=== PATIENT | female | born 1980 | race Caucasian/White ===

== ENCOUNTER 2016-10-16 19:55 | Emergency (ER) | payer OTHER ==
[~2016-10-16] VITALS: Wt 74.0 kg
[2016-10-16] MEDS ORDERED: ACETAMINOPHEN 500 MG TAB PO STA (20:49)
[2016-10-16] MEDS ORDERED: KETOROLAC 60 MG INJ IM STA (20:49)
[2016-10-16 21:22] LABS: URINE BLOOD (Dip) POC 2+ (NEGATIVE)
[2016-10-16] MEDS ORDERED: ACET325T33 PO (21:36)
[2016-10-16] MEDS ORDERED: IBUP800T25 PO (21:36)
--- NOTE | 2016-10-16 21:56 | ERD ---
ER Documentation Chief Complaint Date/Time DATE: 10/16/16 TIME: 21:53 Chief Complaint Colds , cough and fever with ST, Right ear ache and body malaise HPI 36-year-old female coming in complaining of sore throat, ear pain, dry cough, fevers body aches, runny nose. Patient states that she has had the symptoms for the last 4 hours. She has not taken medications for her symptoms. She denies sick contacts. Denies recent travel. Denies headache. Denies neck pain. Denies vomiting. Denies change in urination or bowel movement. ROS All systems reviewed and are negative except as per history of present illness. Medications Home Meds Active Scripts Acetaminophen* (Tylenol*) 325 Mg Tablet, 2 TAB PO Q8 Y for PAIN AND OR ELEVATED TEMP, #20 TAB Prov:MARIA M ORTIZ PA-C 10/16/16 Ibuprofen* (Motrin*) 800 Mg Tab, 800 MG PO Q6, #30 TAB Prov:MARAI M ORTIZ PA-C 10/16/16 Allergies Allergies: Coded Allergies: No Known Allergy (Unverified , 10/16/16) PMhx/Soc History of Surgery: No Anesthesia Reaction: No Hx Neurological Disorder: No Hx Respiratory Disorders: No Hx Cardiac Disorders: No Hx Psychiatric Problems: No Hx Miscellaneous Medical Probl: No Hx Alcohol Use: No Hx Substance Use: No Hx Tobacco Use: No Smoking Status: Never smoker Physical Exam Vitals Vital Signs Date Time Temp Pulse Resp B/P Pulse Ox O2 Delivery O2 Flow Rate FiO2 10/16/16 20:04 100.0 99 20 135/75 97 Physical Exam GENERAL: The patient is well-appearing, well-nourished, in no acute distress HEENT: Atraumatic. Conjunctivae are pink. Pupils equal, round, and reactive to light. There is no scleral icterus. Tympanic membranes clear bilaterally. Oropharynx clear. No nystagmus or photophobia. NECK: C-spine is soft and supple. There is no meningismus. There is no cervical lymphadenopathy. No JVD. No bruits. No goiter. CHEST: Clear to auscultation bilaterally. There are no rales, wheezes or rhonchi. HEART: Regular rate and rhythm. No murmurs, clicks, rubs or gallops. No S3 or S4. ABDOMEN:Soft, nontender and nondistended. Good bowel sounds. No rebound or guarding. No gross peritonitis. No gross organomegaly or masses. No Bonilla sign or McBurney point tenderness. BACK: No midline or flank tenderness. SKIN: There is no apparent rash or petechiae. The skin is warm and dry. Results 24 hrs Laboratory Tests Test 10/16/16 21:29 Bedside Urine pH (LAB) 5.5 Bedside Urine Protein (LAB) 1+ Bedside Urine Glucose (UA) 0.25% Bedside Urine Ketones (LAB) Negative Bedside Urine Blood 2+ Bedside Urine Nitrite (LAB) Negative Bedside Urine Leukocyte Esterase (L Negative Current Medications Medications (Trade) Dose Ordered Sig/Donnell Route PRN Reason Start Time Stop Time Status Last Admin Dose Admin Ketorolac Tromethamine (Toradol) 60 mg ONCE STAT IM 10/16/16 20:49 10/16/16 20:51 DC 10/16/16 21:27 Acetaminophen (Tylenol Tab) 1,000 mg ONCE STAT PO 10/16/16 20:49 10/16/16 20:51 DC 10/16/16 21:14 Procedures/MDM ER course: Negative urine. Negative hcg. IM Toradol and oral Tylenol given in ED. MDM: 36-year-old female coming in complaining of sore throat, runny nose, diffuse body aches and dry cough. I have low suspicion for meningitis or sepsis. Patient does not have nuchal rigidity on exam. I have low suspicion for pneumonia as patient's oxygen saturations at 97% on room air, patient does not have productive cough and breath sounds are within normal limits. I have low suspicion for bacterial HEENT infection. Patient's exam is not concerning. I have low suspicion for acute abdomen or pyelonephritis. Patient's exam is not concerning. Patient likely has viral syndrome causing symptoms. Patient's temperature was reevaluated during my exam and was documented 98.3. Patient will be discharged with pain medication and told to follow-up with primary care within 1-2 days for close evaluation. Patient was discharged with strict ER precautions. Departure Diagnosis: Primary Impression: Viral syndrome Condition: Stable Patient Instructions: Uri, Viral, No Abx (Adult) Referrals: COMM[facility] YOU HAVE RECEIVED A MEDICAL SCREENING EXAM AND THE RESULTS INDICATE THAT YOU DO NOT HAVE A CONDITION THAT REQUIRES URGENT TREATMENT IN THE EMERGENCY DEPARTMENT. FURTHER EVALUATION AND TREATMENT OF YOUR CONDITION CAN WAIT UNTIL YOU ARE SEEN IN YOUR DOCTORS OFFICE WITHIN THE NEXT 1-2 DAYS. IT IS YOUR RESPONSIBILITY TO MAKE AN APPOINTMENT FOR FOLOW-UP CARE. IF YOU HAVE A PRIMARY DOCTOR --you should call your primary doctor and schedule an appointment IF YOU DO NOT HAVE A PRIMARY DOCTOR YOU CAN CALL OUR PHYSICIAN REFERRAL HOTLINE AT IF YOU CAN NOT AFFORD TO SEE A PHYSICIAN YOU CAN CHOSE FROM THE FOLLOWING [facility] CL[facility]ICS [facility] [address] [facility] [address] [facility] [facility] [address] [facility] [address] [facility] [address] [facility]. [address] Additional Instructions: FOLLOW UP WITH YOUR PRIMARY CARE PHYSICIAN TOMORROW.Return to this facility if you are not improving as expected. MARIA M ORTIZ PA-C Oct 16, 2016 21:56
== END 2016-10-16 22:04 | disposition home or self-care (01) ==
LOC: FTE 19:55
DX: B34.9 Viral infection, unspecified (principal)
CPT/HCPCS: 81003; 96372; J1885; Z7502; Z7610